=== PATIENT | female | born 1975 | race Caucasian/White ===

== ENCOUNTER 2023-10-24 15:24 | Emergency (ER) | payer OTHER, MEDICAID ==
[~2023-10-24] VITALS: Ht 165.1 cm; Wt 86.9 kg
[2023-10-24] MEDS ORDERED: PEPC1TAB5 PO (15:32)
[2023-10-24] MEDS ORDERED: GABA-284 PO (15:32)
[2023-10-24] MEDS ORDERED: REGL10TA6 PO (15:32)
[2023-10-24] MEDS ORDERED: SIMV20TA22 PO (15:32)
[2023-10-24] MEDS ORDERED: OMEP10CASR PO (15:32)
[2023-10-24] MEDS ORDERED: ACET500P3 PO (15:32)
[2023-10-24 17:06] VITALS: BP 126/67; TEMP 98.9; O2SAT 99
[2023-10-24] MEDS ORDERED: IBUP-1824 PO (18:33)
[2023-10-24] MEDS ORDERED: AMOX250C PO (18:33)
== END 2023-10-24 18:39 | disposition home or self-care (01) ==
LOC: M ED 15:24
DX: K04.7 Periapical abscess without sinus (principal); F17.200 Nicotine dependence, unspecified, uncomplicated; J44.9 Chronic obstructive pulmonary disease, unspecified; Z79.52 Long term (current) use of systemic steroids; Z79.2 Long term (current) use of antibiotics; Z79.1 Long term (current) use of non-steroidal anti-inflammatories (NSAID); Z79.899 Other long term (current) drug therapy

== ENCOUNTER 2023-11-07 08:59 | Emergency (ER) | payer MEDICAID, OTHER ==
[~2023-11-07] VITALS: Ht 162.6 cm; Wt 86.7 kg
[~2023-11-07 08:59] MED LIST: ACET500P3 PO; AMOX250C PO; GABA-284 PO; IBUP-1824 PO; OMEP10CASR PO; PEPC1TAB5 PO; REGL10TA6 PO; SIMV20TA22 PO
[2023-11-07] MEDS ORDERED: ACET-683 PO (09:09)
[2023-11-07 11:07] VITALS: BP 133/61; TEMP 98.5; O2SAT 99
[2023-11-07] MEDS ORDERED: AMOX400S2 PO (11:58)
[2023-11-07] MEDS ORDERED: PERI0.126 PO (11:58)
== END 2023-11-07 12:04 | disposition home or self-care (01) ==
LOC: M ED 08:59
DX: U07.1 COVID-19 (principal); K04.7 Periapical abscess without sinus; Z88.5 Allergy status to narcotic agent; Z79.2 Long term (current) use of antibiotics; Z79.899 Other long term (current) drug therapy

== ENCOUNTER 2023-12-13 19:31 | Emergency (ER) | payer MEDICAID, OTHER ==
[~2023-12-13] VITALS: Ht 162.6 cm; Wt 85.6 kg
[~2023-12-13 19:31] MED LIST changes: +ACET-683 PO; +AMOX400S2 PO; +PERI0.126 PO
[2023-12-13 19:38] VITALS: BP 167/85; TEMP 97; O2SAT 94
[2023-12-13] MEDS ORDERED: CEPH500C PO (20:20)
[2023-12-13] MEDS: BOOSTRIX VACCINE (TETANUS/DIPHTH/ACEL. PERTUSSIS) 0.5ML SYR IM.IMMUN ONE (20:24)
== END 2023-12-13 20:33 | disposition home or self-care (01) ==
LOC: M ED 19:31
DX: S80.811A Abrasion, right lower leg, initial encounter (principal); J44.9 Chronic obstructive pulmonary disease, unspecified; F41.9 Anxiety disorder, unspecified; F17.200 Nicotine dependence, unspecified, uncomplicated; Z88.5 Allergy status to narcotic agent; Z79.2 Long term (current) use of antibiotics; Z79.1 Long term (current) use of non-steroidal anti-inflammatories (NSAID); Z79.899 Other long term (current) drug therapy; Y92.9 Unspecified place or not applicable; Y93.9 Activity, unspecified; Y99.9 Unspecified external cause status; Z23 Encounter for immunization

== ENCOUNTER → 2024-01-09 | Outpatient (REF) | payer MEDICAID ==
[~2024-01-09] MED LIST changes: +CEPH500C PO
[2024-01-09 18:26] LABS: ALBUMIN 4.1 G/DL (3.2-5.2); ALKALINE PHOSPHATASE 115 U/L (35-104); ALT/SGPT 13 U/L (7.0-40); AST/SGOT < 8 U/L (<34); BILIRUBIN,TOTAL 0.7 MG/DL (0.3-1.2); BLOOD UREA NITROGEN 11 MG/DL (9-23); CALCIUM LEVEL 9.8 MG/DL (8.5-10.1); CARBON DIOXIDE LEVEL 26 MMOL/L (20-31); CHLORIDE LEVEL 109 MMOL/L (98-107); CHOLESTEROL LEVEL 302 MG/DL (<200); CHOLESTEROL RISK RATIO 7.29 (<5); CREATININE FOR GFR 0.92 MG/DL (0.55-1.30); GLOMERULAR FILTRATION RATE > 60.0 (>51); GLUCOSE, FASTING 89 MG/DL (60-100); HDL CHOLESTEROL 41.4 MG/DL (>40); LDL CHOLESTEROL 219.2 MG/DL (<100); NON-HDL-C 260.6 MG/DL; SODIUM LEVEL 142 MMOL/L (136-145); THYROID STIMULATING HORMONE 2.258 uIU/ML (0.55-4.78); TOTAL 25(OH) VITAMIN D 15.2 NG/ML (20.0-100.0); TOTAL PROTEIN 7.7 G/DL (5.7-8.2); TRIGLYCERIDES LEVEL 207 MG/DL (<150)
[2024-01-09 18:34] LABS: HEMOGLOBIN A1c 5.3 % (4.0-6.0)
== END ==
LOC: M LAB REF 17:40
PROVIDERS: ATTEND Physician Assistant
DX: E66.9 Obesity, unspecified (principal); E55.9 Vitamin D deficiency, unspecified

== ENCOUNTER → 2024-05-01 | Outpatient (REF) | payer OTHER ==
[2024-05-03 13:01] LABS: HPV APTIMA Not Detected (Not Detected)
== END ==
LOC: M LAB REF 18:09
PROVIDERS: ATTEND Physician Assistant
DX: Z12.4 Encounter for screening for malignant neoplasm of cervix (principal)
CPT/HCPCS: 87624; G0123

== ENCOUNTER 2024-05-22 10:24 | Emergency (ER) | payer OTHER ==
[~2024-05-22] VITALS: Ht 165.1 cm; Wt 87.0 kg
[~2024-05-22 10:24] MED LIST changes: -ARIP1TAB4; -BUPR150T12; -ESCITALOPRAM; -HYDR-3363; -TREL1AER
[2024-05-22] MEDS ORDERED: BUPR150T12 (10:32)
[2024-05-22] MEDS ORDERED: HYDR-3363 (10:32)
[2024-05-22] MEDS ORDERED: TREL1AER (10:32)
[2024-05-22] MEDS ORDERED: ARIP1TAB4 (10:32)
[2024-05-22] MEDS ORDERED: ESCITALOPRAM (10:32)
[2024-05-22 12:25] VITALS: BP 112/75; TEMP 98.1; O2SAT 94
== END 2024-05-22 12:51 | disposition home or self-care (01) ==
LOC: M ED 10:24
DX: M65.4 Radial styloid tenosynovitis [de Quervain] (principal); E78.5 Hyperlipidemia, unspecified; Z88.5 Allergy status to narcotic agent; Z79.899 Other long term (current) drug therapy

== ENCOUNTER → 2024-05-22 | Outpatient (REF) ==
[~2024-05-22] MED LIST changes: +ARIP1TAB4; +BUPR150T12; +ESCITALOPRAM; +HYDR-3363; +TREL1AER
== END ==
LOC: M RAD 10:01
PROVIDERS: ATTEND Internal Medicine
DX: M25.561 Pain in right knee (principal)

== ENCOUNTER 2024-06-11 15:20 | Emergency (ER) | payer OTHER ==
[~2024-06-11] VITALS: Ht 165.1 cm; Wt 88.9 kg
[~2024-06-11 15:20] MED LIST changes: +ARIP1TAB4; +BUPR150T12; +ESCITALOPRAM; +HYDR-3363; +TREL1AER
[2024-06-11 15:27] VITALS: BP 122/76; TEMP 97.9; O2SAT 97
== END 2024-06-11 17:23 | disposition left against medical advice (07) ==
LOC: M ED 15:20
DX: Z53.21 Procedure and treatment not carried out due to patient leaving prior to being seen by health care provider (principal)

== ENCOUNTER → 2024-10-16 | Outpatient (CLI) | payer OTHER | LOC: M RAD 12:41 | PROVIDERS: ATTEND Physician Assistant | DX: M47.26 Other spondylosis with radiculopathy, lumbar region (principal); M47.817 Spondylosis without myelopathy or radiculopathy, lumbosacral region ==

== ENCOUNTER 2024-10-30 17:43 | Emergency (ER) | payer OTHER ==
[~2024-10-30] VITALS: Ht 165.1 cm; Wt 91.7 kg
[~2024-10-30 17:43] MED LIST changes: +ARIP1TAB6 PO; -BUPR150T12; +BUPR150T12 PO; +CETI-24 PO; +FAMO1TAB11 PO; -HYDR-3363; +HYDR-3363 PO; +LEXA1TAB PO; +LEXA5TAB13 PO; +MELO15TA28 PO; +OMEP-173 PO; +SIMV40TA20 PO; -TREL1AER; +TREL1AER INH; +VITA200016 PO
[2024-10-30 18:20] LABS: BASO # 0.0 10^3/uL (0.0-0.2); BASO % 0.3 % (0.0-1.0); EOS # 0.1 10^3/uL (0.0-0.5); EOS % 1.2 % (0.0-3.0); LYMPH # 3.1 10^3/uL (1.5-5.0); LYMPH % 26.7 % (24.0-44.0); MONO # 0.7 10^3/uL (0.0-0.8); MONO % 6.2 % (2.0-8.0); NEUTROPHILS # 7.5 10^3/uL (1.5-8.5); NEUTROPHILS % 65.4 % (36.0-66.0); PLATELET COUNT, AUTOMATED 358 10^3/uL (150-450)
[2024-10-30 18:31] LABS: INR 0.91
[2024-10-30 18:59] LABS: ALT/SGPT 21 U/L (7.0-40); AST/SGOT 18 U/L (<34); CALCIUM LEVEL 9.3 MG/DL (8.5-10.1); CARBON DIOXIDE LEVEL 24 MMOL/L (20-31); CHLORIDE LEVEL 107 MMOL/L (98-107); CK-MB VALUE MASS 1.4 NG/ML (<3.6); CREATININE FOR GFR 0.86 MG/DL (0.55-1.30); GLOMERULAR FILTRATION RATE 81.7 (>51); POTASSIUM SERUM 4.4 MMOL/L (3.5-5.1); SODIUM LEVEL 142 MMOL/L (136-145)
[2024-10-30 19:00] LABS: FREE T4 1.12 NG/DL (0.89-1.76)
[2024-10-30 19:04] LABS: CPK CREATINE PHOSPHOKINASE 94 U/L (34-145); MB/CK RELATIVE INDEX 1.48 (< OR =4)
[2024-10-30] MEDS ORDERED: ISOVUE-370 76% 100 ML VIAL As Ordered ONE (19:22)
[2024-10-30] MEDS: LIDOCAINE VISCOUS 2% SOLN 15 ML UDC PO ONE (19:33)
[2024-10-30] MEDS: SUCRALFATE SUSP 1GM/10ML UD PO ONE (19:33)
[2024-10-30] MEDS: MAALOX 30 ML SUSP *UDC PO ONE (19:33)
[2024-10-30] MEDS: PANTOPRAZOLE 40MG VIAL IV ONE (19:33)
[2024-10-30 19:52] LABS: CK-MB VALUE MASS 1.2 NG/ML (<3.6)
[2024-10-30 19:53] LABS: CPK CREATINE PHOSPHOKINASE 81.0 U/L (34-145); MB/CK RELATIVE INDEX 1.48 (< OR =4)
[2024-10-30] MEDS ORDERED: SUCR1SS PO (21:02)
[2024-10-30 21:10] VITALS: BP 143/84; TEMP 97.5; O2SAT 95
== END 2024-10-30 21:18 | disposition home or self-care (01) ==
LOC: M ED 17:43
DX: R10.13 Epigastric pain (principal); K21.9 Gastro-esophageal reflux disease without esophagitis; J44.9 Chronic obstructive pulmonary disease, unspecified; F32.9 Major depressive disorder, single episode, unspecified; F41.9 Anxiety disorder, unspecified; Z88.5 Allergy status to narcotic agent; Z79.899 Other long term (current) drug therapy
CPT/HCPCS: 71045; 71275; 74174; 80048; 80076; 82550; 82553; 83690; 84439; 84443; 84484; 85025; 85610; 85730; 93005; 93041; 94760; 96374; 99285; J2470; Q9967

== ENCOUNTER → 2024-11-04 | Outpatient (REF) | payer OTHER ==
[~2024-11-04] MED LIST changes: +SUCR1SS PO
[2024-11-04 17:39] LABS: ESTIMATED AVERAGE GLUCOSE 128.0 MG/DL (60-110)
[2024-11-04 17:55] LABS: ALT/SGPT 17.0 U/L (7.0-40); AST/SGOT 14.0 U/L (<34); CALCIUM LEVEL 8.9 MG/DL (8.5-10.1); CARBON DIOXIDE LEVEL 24.0 MMOL/L (20-31); CHLORIDE LEVEL 108.0 MMOL/L (98-107); CHOLESTEROL LEVEL 169.0 MG/DL (<200); CHOLESTEROL RISK RATIO 4.54 (<5); CREATININE FOR GFR 0.82 MG/DL (0.55-1.30); GLOMERULAR FILTRATION RATE 86.6 (>51); LDL CHOLESTEROL 86.6 MG/DL (<100); MAGNESIUM LEVEL 1.8 MG/DL (1.8-2.4); NON-HDL-C 131.8 MG/DL; POTASSIUM SERUM 4.2 MMOL/L (3.5-5.1); SODIUM LEVEL 141.0 MMOL/L (136-145); TRIGLYCERIDES LEVEL 226.0 MG/DL (<150)
[2024-11-04 17:57] LABS: TOTAL 25(OH) VITAMIN D 19.9 NG/ML (20.0-100.0)
== END ==
LOC: M LAB REF 16:30
PROVIDERS: ATTEND Physician Assistant
DX: E78.5 Hyperlipidemia, unspecified (principal); E66.9 Obesity, unspecified; K31.84 Gastroparesis; E55.9 Vitamin D deficiency, unspecified

== ENCOUNTER 2024-11-10 08:12 | Day surgery (SDC) | payer OTHER ==
[~2024-11-10] VITALS: Ht 165.1 cm; Wt 92.1 kg
[2024-11-10] MEDS: LIDOCAINE W/EPINEPHrine 1% 20 ML VIAL XX ONE (09:00)
[2024-11-10] MEDS: SODIUM BICARBONATE 8.4% INJ 50MEQ/50ML VIAL XX ONE (09:20)
[2024-11-10 11:02] VITALS: BP 165/77; TEMP 96.6; O2SAT 97
== END 2024-11-10 11:32 | disposition home or self-care (01) ==
LOC: M SDC 08:12
PROVIDERS: ATTEND Orthopaedic Surgery Hand Surgery
DX: M65.4 Radial styloid tenosynovitis [de Quervain] (principal); J44.9 Chronic obstructive pulmonary disease, unspecified; E78.00 Pure hypercholesterolemia, unspecified; F17.210 Nicotine dependence, cigarettes, uncomplicated; K21.9 Gastro-esophageal reflux disease without esophagitis; Z79.899 Other long term (current) drug therapy; Z79.52 Long term (current) use of systemic steroids; F41.9 Anxiety disorder, unspecified; F32.A Depression, unspecified; Z88.5 Allergy status to narcotic agent